=== PATIENT | male | born 1940 | race Caucasian/White ===

== ENCOUNTER 2019-02-18 08:31 | Outpatient (CLI) | payer MEDICARE, OTHER ==
[2019-02-18 09:21] LABS: BASOPHILS % (AUTO) 0.6 % (0-1); EOSINOPHILS # (AUTO) 0.1 X10'3 (0-0.9); EOSINOPHILS % (AUTO) 1.5 % (0-6); HEMATOCRIT 41.7 % (42.0-52.0); LYMPHOCYTES # (AUTO) 1.7 X10'3 (1.1-4.8); LYMPHOCYTES % (AUTO) 26.8 % (21-51); MEAN CORPUSCULAR HEMOGLOBIN 29.5 PG (27.0-31.0); MEAN CORPUSCULAR HGB CONC 33.6 g/dL (33.0-36.5); MEAN CORPUSCULAR VOLUME 87.9 FL (78-98); MEAN PLATELET VOLUME 7.8 FL (7.4-10.4); MONOCYTES # (AUTO) 0.6 X10'3 (0-0.9); NEUTROPHILS % (AUTO) 62.1 % (42-75); PLATELET COUNT 212 X10'3 (140-440); RED BLOOD COUNT 4.74 X10'6 (4.70-6.10); RED CELL DISTRIBUTION WIDTH 14.5 % (11.5-14.5); WHITE BLOOD COUNT 6.5 X10'3 (4.5-11.0)
[2019-02-18 09:28] LABS: PARTIAL THROMBOPLASTIN TIME 43 SECONDS (22-32)
[2019-02-18 09:33] LABS: ALANINE AMINOTRANSFERASE 16 U/L (12-78); ALBUMIN 3.6 G/DL (3.4-5.0); ALBUMIN/GLOBULIN RATIO 0.9 (1.1-1.5); ALKALINE PHOSPHATASE 94 IU/L (46-116); ANION GAP 4 (8-16); ASPARTATE AMINO TRANSFERASE 15 U/L (10-37); BILIRUBIN,TOTAL 0.7 MG/DL (0.1-1.0); BLOOD UREA NITROGEN 24 MG/DL (7-18); BUN/CREATININE RATIO 16.8 (5.4-32.0); CALCIUM 9.5 MG/DL (8.5-10.1); CHLORIDE 108 MMOL/L (99-107); CREATININE 1.43 MG/DL (0.60-1.10); GLUCOSE 91 MG/DL (70-104); POTASSIUM 4.2 MMOL/L (3.5-5.1); SODIUM 144 MMOL/L (135-145); TOTAL CARBON DIOXIDE 31.9 MMOL/L (24-32); TOTAL PROTEIN 7.5 G/DL (6.4-8.2); eGFR 48 ML/MIN
== END 2019-02-18 23:59 | disposition home or self-care (01) ==
LOC: LAB 08:31
PROVIDERS: ATTEND Otolaryngology
DX: D69.1 Qualitative platelet defects (principal)
CPT/HCPCS: 36415; 80053; 85025; 85576; 85610; 85730

== ENCOUNTER 2021-02-25 08:00 | Inpatient (IN) | payer MEDICARE, OTHER ==
[2021-02-19 13:00] LABS: CLARITY,URINE CLEAR (Clear); COLOR,URINE YELLOW (Yellow); GLUCOSE, URINE NEGATIVE (Neg); KETONES,URINE NEGATIVE (Neg); LEUKOCYTE ESTERASE ,URINE NEGATIVE (Neg); NITRITES, URINE NEGATIVE (Neg); OCCULT BLOOD,URINE NEGATIVE (Neg); PH,URINE 5.5 (4.8-8.0); PROTEIN,URINE 100 mg/dl (Neg); UA COLLECTION TYPE CLN CATCH MIDSTREAM; UROBILINOGEN,URINE 0.2 E.U/dL (0.2-1.0)
[2021-02-19 13:02] LABS: BASOPHILS # (AUTO) 0.1 X10'3 (0-0.2); BASOPHILS % (AUTO) 0.6 % (0-1); EOSINOPHILS # (AUTO) 0.1 X10'3 (0-0.9); EOSINOPHILS % (AUTO) 1.7 % (0-6); LYMPHOCYTES # (AUTO) 2.3 X10'3 (1.1-4.8); LYMPHOCYTES % (AUTO) 26.6 % (21-51); MEAN CORPUSCULAR HEMOGLOBIN 28.8 PG (27.0-31.0); MEAN CORPUSCULAR HGB CONC 33.2 g/dL (33.0-36.5); MEAN CORPUSCULAR VOLUME 86.7 FL (78-98); MONOCYTES # (AUTO) 0.8 X10'3 (0-0.9); MONOCYTES % (AUTO) 9.7 % (2-12); NEUTROPHILS # (AUTO) 5.2 X10'3 (1.8-7.7); NEUTROPHILS % (AUTO) 61.4 % (42-75); PRE OP HEMATOCRIT 43.6 % (42.0-52.0); PRE OP HEMOGLOBIN 14.5 g/dL (14.0-17.9); PRE OP PLATELET COUNT 219 X10'3 (140-440); RED BLOOD COUNT 5.03 X10'6 (4.70-6.10); RED CELL DISTRIBUTION WIDTH 15.2 % (11.5-14.5)
[2021-02-19 13:14] LABS: BACTERIA,URINE NONE SEEN /HPF (Neg); MUCUS STRANDS NONE SEEN /LPF (Neg); RBC,URINE NONE SEEN /HPF (0-2); SQUAMOUS EPITHELIAL CELL,UR FEW /LPF (FEW); WBC,URINE 0-4 /HPF (0-4)
[2021-02-19 13:16] LABS: PRE OP PARTIAL THROMB. TIME 39 SECONDS (22-32)
[2021-02-19 13:20] LABS: ALBUMIN 3.6 G/DL (3.4-5.0); ALBUMIN/GLOBULIN RATIO 0.9 (1.1-1.5); ALKALINE PHOSPHATASE 97 IU/L (46-116); BLOOD UREA NITROGEN 23 MG/DL (7-18); BUN/CREATININE RATIO 16.1 (5.4-32.0); CALCIUM 9.2 MG/DL (8.5-10.1); CHLORIDE 105 MMOL/L (99-107); CREATININE 1.43 MG/DL (0.60-1.10); PRE OP ALT 23 U/L (30-65); PRE OP ANION GAP 9 (8-16); PRE OP AST 17 U/L (10-37); PRE OP BILIRUB, TOTAL 0.7 MG/DL (0.0-1.0); PRE OP GLUCOSE 82 MG/DL (70-104); PRE OP POTASSIUM 4.1 MMOL/L (3.4-5.1); PRE OP SODIUM 143 MMOL/L (135-145); TOTAL CARBON DIOXIDE 29.4 MMOL/L (24-32); TOTAL PROTEIN 7.4 G/DL (6.4-8.2); eGFR 47 ML/MIN
[~2021-02-25] VITALS: Ht 182.9 cm; Wt 99.3 kg
[~2021-02-25 08:00] MED LIST: DILT120C10 PO; DOCUMENT DATE & TIME OF BETA-BLOCKER PO ONE; FLO0.4C PO; LOSA50TA3 PO; METO-539 PO; PRAV20TA4 PO; WARF-55 PO; ceFAZolin 2gm in dextrose, iso 50 ML IV ONE; famotidine 20mg tablet PO ONE; ringers solution, lacted 1,000 ML IV SCH
[2021-02-26] VITALS (12 sets, daily range): BP systolic 120–165; BP diastolic 74–96
[2021-02-26] MEDS ORDERED: ringers solution, lacted 1,000 ML IV SCH ×2 (05:30→16:45)
[2021-02-26] MEDS ORDERED: DOCUMENT DATE & TIME OF BETA-BLOCKER PO ONE (05:30)
[2021-02-26] MEDS ORDERED: ceFAZolin 2gm in dextrose, iso 50 ML IV ONE (05:30)
[2021-02-26] MEDS ORDERED: famotidine 20mg tablet PO ONE (05:30)
[2021-02-26] MEDS ORDERED: ondansetron/PF 4mg/2ml inj ONE (13:28)
[2021-02-26] MEDS ORDERED: LIDOcaine 2% (20mg/ml) 5ml vial ONE (13:28)
[2021-02-26] MEDS ORDERED: dexamethasone sod phosphate 4mg/ml inj. ONE (13:28)
[2021-02-26] MEDS ORDERED: propofol inj 20 ML IV ONE (13:28)
[2021-02-26] MEDS ORDERED: midazolam 1 mg/ML 2ml injection ONE (13:28)
[2021-02-26] MEDS ORDERED: fentaNYL /PF 50mcg/ml 5ml ampule ONE (13:28)
[2021-02-26] MEDS ORDERED: rocuronium 10mg/ml inj IV ONE ×3 (13:29→16:50)
[2021-02-26] MEDS ORDERED: sevoflurane 250ml liquid IH ONE (13:37)
[2021-02-26] MEDS ORDERED: PHENYLephrine 10mg/ml 5ml injection IV ONE (13:37)
[2021-02-26] MEDS ORDERED: albumin (Human) 5% 250ml 250 ML IV ONE ×2 (14:33→17:55)
[2021-02-26] MEDS ORDERED: ePHEDrine 50MG/ML INJ. ONE (15:59)
[2021-02-26] MEDS ORDERED: INDOCYANINE GREEN 25 MG/10 ML VIAL IV ONE (16:12)
[2021-02-26] MEDS ORDERED: morphine 2 MG/ML inj. syringe IV PRN (16:45)
[2021-02-26] MEDS ORDERED: ondansetron/PF 4mg/2ml inj IV PRN ×2 (16:45→20:10)
[2021-02-26] MEDS ORDERED: labetalol 20mg/4ml (5mg/ml) syringe IV PRN (16:45)
[2021-02-26] MEDS ORDERED: fentaNYL/PF 50MCG/1 ML 2ML syringe IV PRN ×2 (16:45)
[2021-02-26] MEDS ORDERED: albuterol 2.5 MG/3 ML nebule NEB ONE (16:45)
[2021-02-26] MEDS ORDERED: hydrALAZINE 20mg/ml inj. IV PRN (16:45)
[2021-02-26] MEDS ORDERED: glycopyrrolate 0.2mg/ml inj ONE (16:51)
[2021-02-26] MEDS ORDERED: neostigmine methylsulfate 1 MG/ML 10ml vial ONE (16:51)
[2021-02-26] MEDS ORDERED: BUPIVACAINE liposomal/PF 13.3 MG/ML vial IM ONE (18:05)
[2021-02-26] MEDS ORDERED: BUPIVAcaine/PF 2.5mg/ml (0.25%) 10ml vial ONE (18:05)
[2021-02-26] MEDS ORDERED: sugammadex 200mg/2ml injection IV ONE (18:08)
--- NOTE | 2021-02-26 19:23 | NUR ---
Received from OR via BED IN STABLE CONDITION, accompanied by Anesthesiologist and MACHINE CASTINGS PLASTERER report given by MACHINE CASTINGS PLASTERER AND Anesthesiolgist. Addendum: 02/26/21 at 1939 by Eleanor Olivas RN Amended: Links added.
[2021-02-26 19:47] LABS: ABG HCO3 21.2 mmol/L (22.0-26.0); ABG OXYGEN SATURATION 91.1 % (94-97); ABG PCO2 (T) 42.1 mmHg (35.0-48.0); ABG PO2 (T) 63.4 mmHg (75.0-100.0); FCOHb 0.7 % (0.0-3.9); FLOW 2 L/min; FMetHb 0.3 % (0.0-1.5); FO2Hb 90.2 % (94-97); PATIENT TEMPERATURE 36.2; TOTAL HEMOGLOBIN 13.6 G/dl (14.0-18.0)
[2021-02-26] MEDS ORDERED: acetaminophen 1,000mg/100ml IV 100 ML IV ONE (20:00)
[2021-02-26] MEDS: morphine 4 MG/ML inj SYRINge IV PRN ×3 (20:03→20:50)
[2021-02-26] MEDS ORDERED: albuterol 2.5 MG/3 ML nebule NEB PRN (20:10)
[2021-02-26] MEDS ORDERED: CADD PCA waste documentation MC PRN (20:10)
[2021-02-26] MEDS ORDERED: naloxone 0.4 mg/ml inj IV PRN (20:10)
[2021-02-26] MEDS ORDERED: HYDROcodone/acetaminophen 10/325mg tab PO PRN (20:10)
[2021-02-26] MEDS ORDERED: potassium Cl 20mEq in D5-NS 1,000 ML IV SCH (20:10)
[2021-02-26] MEDS ORDERED: morphine 4 MG/ML inj SYRINge IV PRN ×2 (20:10)
[2021-02-26] MEDS ORDERED: metoclopramide 5 mg/ml inj IV PRN (20:10)
--- NOTE | 2021-02-26 20:23 | NUR ---
PATIENT DISCHARGED FROM PACU IN STABLE CONDITION AFTER REPORT GIVEN TO RN TAKING OVER PATIENTS CARE. PATIENT TRANFERRED IN BED WITH RN X2 ON MONITOR. RN UPDATED. Addendum: 02/26/21 at 2039 by Eleanor Olivas RN Amended: Links added.
[2021-02-26 21:46] LABS: BASOPHILS % (AUTO) 0.2 % (0-1); EOSINOPHILS % (AUTO) 0 % (0-6); HEMATOCRIT 39.9 % (42.0-52.0); HEMOGLOBIN 13.2 g/dl (14.0-17.9); LYMPHOCYTES # (AUTO) 0.4 X10'3 (1.1-4.8); LYMPHOCYTES % (AUTO) 3.7 % (21-51); MEAN CORPUSCULAR HGB CONC 33.2 g/dL (33.0-36.5); MEAN CORPUSCULAR VOLUME 87.3 FL (78-98); MEAN PLATELET VOLUME 7.9 FL (7.4-10.4); MONOCYTES # (AUTO) 0.7 X10'3 (0-0.9); MONOCYTES % (AUTO) 6.2 % (2-12); NEUTROPHILS # (AUTO) 9.6 X10'3 (1.8-7.7); NEUTROPHILS % (AUTO) 89.9 % (42-75); PLATELET COUNT 164 X10'3 (140-440); RED BLOOD COUNT 4.57 X10'6 (4.70-6.10); RED CELL DISTRIBUTION WIDTH 14.6 % (11.5-14.5); WHITE BLOOD COUNT 10.7 X10'3 (4.5-11.0)
[2021-02-26] MEDS: HYDROmorphone 1 mg/ml syringe IV PRN (21:51)
[2021-02-26 23:24] LABS: ANION GAP 12 (8-16); BLOOD UREA NITROGEN 19 MG/DL (7-18); BUN/CREATININE RATIO 14.6 (5.4-32.0); CALCIUM 8.4 MG/DL (8.5-10.1); CHLORIDE 107 MMOL/L (99-107); GLUCOSE 165 MG/DL (70-104); POTASSIUM 3.9 MMOL/L (3.5-5.1); SODIUM 143 MMOL/L (135-145); TOTAL CARBON DIOXIDE 24.5 MMOL/L (24-32); eGFR 53 ML/MIN
[2021-02-26 23:25] LABS: ALBUMIN 3.4 G/DL (3.4-5.0); MAGNESIUM 1.7 MG/DL (1.5-2.4)
[2021-02-27] VITALS (24 sets, daily range): BP systolic 116–155; BP diastolic 66–92
[2021-02-27] MEDS: ceFAZolin 1GM/D5W- ADD-VANTAGE 50 ML IV SCH ×2 (00:45→07:35)
[2021-02-27] MEDS: morphine 4 MG/ML inj SYRINge IV PRN ×2 (02:04→10:03)
[2021-02-27 02:28] LABS: BASOPHILS % (AUTO) 0.1 % (0-1); EOSINOPHILS % (AUTO) 0 % (0-6); HEMATOCRIT 39.5 % (42.0-52.0); HEMOGLOBIN 13.2 g/dl (14.0-17.9); LYMPHOCYTES # (AUTO) 0.6 X10'3 (1.1-4.8); LYMPHOCYTES % (AUTO) 5.8 % (21-51); MEAN CORPUSCULAR HGB CONC 33.4 g/dL (33.0-36.5); MEAN CORPUSCULAR VOLUME 86.9 FL (78-98); MEAN PLATELET VOLUME 7.9 FL (7.4-10.4); MONOCYTES # (AUTO) 0.6 X10'3 (0-0.9); MONOCYTES % (AUTO) 6.3 % (2-12); NEUTROPHILS # (AUTO) 8.7 X10'3 (1.8-7.7); NEUTROPHILS % (AUTO) 87.8 % (42-75); PLATELET COUNT 170 X10'3 (140-440); RED BLOOD COUNT 4.55 X10'6 (4.70-6.10); RED CELL DISTRIBUTION WIDTH 14.4 % (11.5-14.5); WHITE BLOOD COUNT 9.9 X10'3 (4.5-11.0)
[2021-02-27 02:56] LABS: ALANINE AMINOTRANSFERASE 28 U/L (12-78); ALBUMIN 3.3 G/DL (3.4-5.0); ALKALINE PHOSPHATASE 76 IU/L (46-116); ANION GAP 7 (8-16); ASPARTATE AMINO TRANSFERASE 34 U/L (10-37); BILIRUBIN,TOTAL 0.7 MG/DL (0.1-1.0); BLOOD UREA NITROGEN 20 MG/DL (7-18); BUN/CREATININE RATIO 15.7 (5.4-32.0); CHLORIDE 105 MMOL/L (99-107); CREATININE 1.27 MG/DL (0.60-1.10); GLUCOSE 189 MG/DL (70-104); MAGNESIUM 1.7 MG/DL (1.5-2.4); PHOSPHORUS 3.9 MG/DL (2.3-4.5); POTASSIUM 4.3 MMOL/L (3.5-5.1); SODIUM 136 MMOL/L (135-145); TOTAL CARBON DIOXIDE 23.9 MMOL/L (24-32); TOTAL PROTEIN 6.5 G/DL (6.4-8.2); eGFR 54 ML/MIN
[2021-02-27] MEDS: HYDROmorphone 1 mg/ml syringe IV PRN (05:52)
[2021-02-27] MEDS: HYDROcodone/acetaminophen 10/325mg tab PO PRN ×2 (06:45→11:36)
[2021-02-27] MEDS: gabapentin 300mg capsule PO SCH ×2 (07:44→20:58)
[2021-02-27] MEDS: diltiazem SR 60mg capsule (twice daily) PO SCH ×2 (09:29→20:58)
[2021-02-27] MEDS: metoprolol succinate 25mg (24-HOUR) SR. Tablet PO SCH (09:29)
[2021-02-27] MEDS ORDERED: morphine 2 MG/ML inj. syringe IV PRN (11:35)
--- NOTE | 2021-02-27 18:30 | NUR ---
Patient in room ICU 2046. I have received report from RAJI Marcum and had the opportunity to ask questions and assume patient care.
[2021-02-27] MEDS: tamsulosin 0.4mg capsule PO SCH (20:58)
[2021-02-27] MEDS: warfarin 5mg tablet PO SCH (20:59)
--- NOTE | 2021-02-27 21:53 | NUR ---
Problems reprioritized. Patient report given, questions answered & plan of care reviewed with RAJI Ocampo.
[2021-02-28] VITALS (21 sets, daily range): BP systolic 90–134; BP diastolic 53–81
--- NOTE | 2021-02-28 06:18 | NUR ---
Problems reprioritized. Patient report given, questions answered & plan of care reviewed with Yonas RN .
--- NOTE | 2021-02-28 06:30 | NUR ---
Patient in room ICU 2046. I have received report from RAJI Ocampo and had the opportunity to ask questions and assume patient care.
[2021-02-28] MEDS: gabapentin 300mg capsule PO SCH ×2 (08:01→20:55)
[2021-02-28] MEDS: diltiazem SR 60mg capsule (twice daily) PO SCH ×2 (08:01→20:55)
[2021-02-28] MEDS: metoprolol succinate 25mg (24-HOUR) SR. Tablet PO SCH (08:01)
[2021-02-28 08:10] LABS: BASOPHILS % (AUTO) 0.1 % (0-1); EOSINOPHILS % (AUTO) 0.1 % (0-6); HEMATOCRIT 37.4 % (42.0-52.0); HEMOGLOBIN 12.5 g/dl (14.0-17.9); LYMPHOCYTES # (AUTO) 1.7 X10'3 (1.1-4.8); LYMPHOCYTES % (AUTO) 14.6 % (21-51); MEAN CORPUSCULAR HGB CONC 33.4 g/dL (33.0-36.5); MEAN CORPUSCULAR VOLUME 86.9 FL (78-98); MEAN PLATELET VOLUME 8.5 FL (7.4-10.4); MONOCYTES # (AUTO) 1.1 X10'3 (0-0.9); MONOCYTES % (AUTO) 9.2 % (2-12); NEUTROPHILS # (AUTO) 8.9 X10'3 (1.8-7.7); PLATELET COUNT 189 X10'3 (140-440); RED CELL DISTRIBUTION WIDTH 14.7 % (11.5-14.5); WHITE BLOOD COUNT 11.8 X10'3 (4.5-11.0)
[2021-02-28 08:18] LABS: PARTIAL THROMBOPLASTIN TIME 36 SECONDS (22-32)
[2021-02-28 08:30] LABS: ALANINE AMINOTRANSFERASE 23 U/L (12-78); ALBUMIN 2.9 G/DL (3.4-5.0); ALBUMIN/GLOBULIN RATIO 0.9 (1.1-1.5); ALKALINE PHOSPHATASE 71 IU/L (46-116); ANION GAP 5 (8-16); ASPARTATE AMINO TRANSFERASE 26 U/L (10-37); BILIRUBIN,TOTAL 0.7 MG/DL (0.1-1.0); BLOOD UREA NITROGEN 22 MG/DL (7-18); BUN/CREATININE RATIO 19.1 (5.4-32.0); CALCIUM 8.8 MG/DL (8.5-10.1); CHLORIDE 104 MMOL/L (99-107); CREATININE 1.15 MG/DL (0.60-1.10); GLUCOSE 105 MG/DL (70-104); MAGNESIUM 2.1 MG/DL (1.5-2.4); POTASSIUM 4.5 MMOL/L (3.5-5.1); SODIUM 138 MMOL/L (135-145); TOTAL CARBON DIOXIDE 28.6 MMOL/L (24-32); TOTAL PROTEIN 6.3 G/DL (6.4-8.2); eGFR 61 ML/MIN
[2021-02-28] MEDS: HYDROcodone/acetaminophen 10/325mg tab PO PRN (14:29)
--- NOTE | 2021-02-28 18:13 | NUR ---
Problems reprioritized. Patient report given, questions answered & plan of care reviewed with RAJI Arauz.
--- NOTE | 2021-02-28 19:06 | NUR ---
report called to Aishwarya ALEGRIA, plan of care reviewed,
--- NOTE | 2021-02-28 19:08 | NUR ---
Patient in room ICU 2046. I have received report from HERSONRN and had the opportunity to ask questions and assume patient care.
--- NOTE | 2021-02-28 19:30 | NUR ---
Patient arrived from ICU with Charge Nurse Carlos and was transferred to hospital bed w/o problem. He is A&Ox4, RAMAN and is appropriate. I will continue to monitor.
[2021-02-28] MEDS: warfarin 5mg tablet PO SCH (20:55)
[2021-02-28] MEDS: tamsulosin 0.4mg capsule PO SCH (20:58)
--- NOTE | 2021-03-01 06:19 | NUR ---
Problems reprioritized. Patient report given, questions answered & plan of care reviewed with RAJI Zarate.
[2021-03-01 06:30] LABS: BASOPHILS % (AUTO) 0.2 % (0-1); EOSINOPHILS # (AUTO) 0.1 X10'3 (0-0.9); EOSINOPHILS % (AUTO) 0.7 % (0-6); HEMOGLOBIN 12.6 g/dl (14.0-17.9); LYMPHOCYTES # (AUTO) 2.2 X10'3 (1.1-4.8); LYMPHOCYTES % (AUTO) 19.8 % (21-51); MEAN CORPUSCULAR HEMOGLOBIN 29.4 PG (27.0-31.0); MEAN CORPUSCULAR VOLUME 86.4 FL (78-98); MEAN PLATELET VOLUME 8.7 FL (7.4-10.4); MONOCYTES # (AUTO) 1.1 X10'3 (0-0.9); MONOCYTES % (AUTO) 10.1 % (2-12); NEUTROPHILS # (AUTO) 7.6 X10'3 (1.8-7.7); NEUTROPHILS % (AUTO) 69.2 % (42-75); PLATELET COUNT 192 X10'3 (140-440); RED BLOOD COUNT 4.28 X10'6 (4.70-6.10); RED CELL DISTRIBUTION WIDTH 14.6 % (11.5-14.5)
[2021-03-01 06:48] LABS: ALANINE AMINOTRANSFERASE 14 U/L (12-78); ALBUMIN 2.7 G/DL (3.4-5.0); ALBUMIN/GLOBULIN RATIO 0.8 (1.1-1.5); ALKALINE PHOSPHATASE 74 IU/L (46-116); ANION GAP 7 (8-16); ASPARTATE AMINO TRANSFERASE 18 U/L (10-37); BILIRUBIN,TOTAL 0.8 MG/DL (0.1-1.0); BLOOD UREA NITROGEN 30 MG/DL (7-18); BUN/CREATININE RATIO 23.1 (5.4-32.0); CALCIUM 8.8 MG/DL (8.5-10.1); CHLORIDE 102 MMOL/L (99-107); GLUCOSE 97 MG/DL (70-104); MAGNESIUM 2.1 MG/DL (1.5-2.4); PHOSPHORUS 3.2 MG/DL (2.3-4.5); POTASSIUM 4.1 MMOL/L (3.5-5.1); SODIUM 138 MMOL/L (135-145); TOTAL PROTEIN 6.1 G/DL (6.4-8.2); eGFR 53 ML/MIN
[2021-03-01 07:00] VITALS: BP 126/70
--- NOTE | 2021-03-01 07:15 | NUR ---
Patient in room PCU 3013. I have received report from Yazmin ALEGRIA and had the opportunity to ask questions and assume patient care.
[2021-03-01] MEDS: metoprolol succinate 25mg (24-HOUR) SR. Tablet PO SCH (08:00)
[2021-03-01] MEDS: diltiazem SR 60mg capsule (twice daily) PO SCH ×2 (08:00→20:04)
[2021-03-01] MEDS: HYDROcodone/acetaminophen 10/325mg tab PO PRN ×3 (08:11→20:06)
[2021-03-01 11:00] VITALS: BP 112/70
[2021-03-01 15:00] VITALS: BP 105/57
[2021-03-01 18:00] VITALS: BP 106/58
--- NOTE | 2021-03-01 18:40 | NUR ---
Problems reprioritized. Patient report given, questions answered & plan of care reviewed with Lina ALEGRIA.
--- NOTE | 2021-03-01 19:06 | NUR ---
Patient in room PCU 3013. I have received report from Tessa ALEGRIA and had the opportunity to ask questions and assume patient care.
--- NOTE | 2021-03-01 19:11 | NUR ---
Chest tube was not marked from dayshift. Marked at 1500, serosanguineous drain apparent, hooked to water seal.
[2021-03-01] MEDS: warfarin 5mg tablet PO SCH (20:03)
[2021-03-01] MEDS: tamsulosin 0.4mg capsule PO SCH (20:04)
[2021-03-01 22:00] VITALS: BP 104/77
--- NOTE | 2021-03-01 23:56 | NUR ---
Went in to do chest tube assessment and found that atrium had been knocked over and RN was not notified. Serosanguineous drainage was in the water seal chamber and had been altered in the collection chambers. After adding the actual drainage in the 3 chambers and accounting for approximately 20 in the water seal chamber, drainage total so far on this shift would be 10cc. Atrium was replaced with the assistance of kiln charger Meghan.
[2021-03-02 02:00] VITALS: BP 120/69
[2021-03-02 05:59] LABS: BASOPHILS % (AUTO) 0.3 % (0-1); EOSINOPHILS # (AUTO) 0.2 X10'3 (0-0.9); HEMATOCRIT 40.4 % (42.0-52.0); HEMOGLOBIN 13.5 g/dl (14.0-17.9); LYMPHOCYTES % (AUTO) 22.1 % (21-51); MEAN CORPUSCULAR HEMOGLOBIN 29.2 PG (27.0-31.0); MEAN CORPUSCULAR HGB CONC 33.4 g/dL (33.0-36.5); MEAN CORPUSCULAR VOLUME 87.3 FL (78-98); MONOCYTES % (AUTO) 11.3 % (2-12); NEUTROPHILS # (AUTO) 5.9 X10'3 (1.8-7.7); NEUTROPHILS % (AUTO) 64.3 % (42-75); PLATELET COUNT 226 X10'3 (140-440); RED BLOOD COUNT 4.62 X10'6 (4.70-6.10); RED CELL DISTRIBUTION WIDTH 14.6 % (11.5-14.5); WHITE BLOOD COUNT 9.2 X10'3 (4.5-11.0)
[2021-03-02 06:14] LABS: ALANINE AMINOTRANSFERASE 19 U/L (12-78); ALBUMIN 2.8 G/DL (3.4-5.0); ALBUMIN/GLOBULIN RATIO 0.7 (1.1-1.5); ALKALINE PHOSPHATASE 74 IU/L (46-116); ANION GAP 4 (8-16); ASPARTATE AMINO TRANSFERASE 20 U/L (10-37); BILIRUBIN,TOTAL 0.9 MG/DL (0.1-1.0); BLOOD UREA NITROGEN 32 MG/DL (7-18); BUN/CREATININE RATIO 21.9 (5.4-32.0); CALCIUM 9.3 MG/DL (8.5-10.1); CHLORIDE 102 MMOL/L (99-107); CREATININE 1.46 MG/DL (0.60-1.10); GLUCOSE 108 MG/DL (70-104); MAGNESIUM 2.1 MG/DL (1.5-2.4); PHOSPHORUS 4.1 MG/DL (2.3-4.5); POTASSIUM 4.2 MMOL/L (3.5-5.1); SODIUM 137 MMOL/L (135-145); TOTAL PROTEIN 6.6 G/DL (6.4-8.2); eGFR 46 ML/MIN
--- NOTE | 2021-03-02 06:31 | NUR ---
Problems reprioritized. Patient report given, questions answered & plan of care reviewed with Becky ALEGRIA.
--- NOTE | 2021-03-02 06:44 | NUR ---
Patient in room PCU 3013. I have received report from RAJI Mills and had the opportunity to ask questions and assume patient care.
[2021-03-02 07:00] VITALS: BP 139/80
--- NOTE | 2021-03-02 07:01 | NUR ---
Patient in room PCU 3013. I have received report from RAJI Pena and had the opportunity to ask questions and assume patient care.
[2021-03-02] MEDS: diltiazem SR 60mg capsule (twice daily) PO SCH ×2 (07:57→20:07)
[2021-03-02] MEDS: metoprolol succinate 25mg (24-HOUR) SR. Tablet PO SCH (07:58)
--- NOTE | 2021-03-02 10:06 | NUR ---
Student documentation: I have reviewed and agree with all interventions, assessments performed and documented by Layla, nursing technician.
--- NOTE | 2021-03-02 10:07 | NUR ---
Student Medication Administration: For this medication-pass time frame, all medication were reviewed, dispensed, administered and documented per hospital policy by Layla nursing consultant.
[2021-03-02 11:00] VITALS: BP 117/67
--- NOTE | 2021-03-02 11:55 | NUR ---
Problems reprioritized. Patient report given, questions answered & plan of care reviewed with RAJI Pena.
--- NOTE | 2021-03-02 14:00 | NUR ---
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 Pt PO mostly 100% avg heart healthy diet post-op meeting needs. Noted +10kg in one day likely error w/ true wt prior 89.1kg making BMI 26. LBM 02/26; would benefit from routine bowel care post-op. Will continue to monitor. Rec: 1. continue heart healthy diet per MD 2. routine bowel care; 4 days constipation post-op 3. weekly wts Addendum: 03/02/21 at [address] Amended: Links added.
[2021-03-02] MEDS: traMADol 50MG tablet PO PRN (14:20)
[2021-03-02 15:00] VITALS: BP 160/84
[2021-03-02 18:00] VITALS: BP 113/72
--- NOTE | 2021-03-02 18:54 | NUR ---
Problems reprioritized. Patient report given, questions answered & plan of care reviewed with RAJI Rendon. Pt sitting up in bed eating dinner. No signs of distress at change of shift. All pt needs met at this time.
--- NOTE | 2021-03-02 18:55 | NUR ---
Patient in room PCU 3013. I have received report from FLORENCIA ALEGRIA and had the opportunity to ask questions and assume patient care.
[2021-03-02] MEDS: tamsulosin 0.4mg capsule PO SCH (20:07)
[2021-03-02] MEDS: warfarin 5mg tablet PO SCH (20:08)
[2021-03-02 22:00] VITALS: BP 164/83
[2021-03-03] VITALS (7 sets, daily range): BP systolic 113–139; BP diastolic 62–85
--- NOTE | 2021-03-03 03:49 | NUR ---
ATRIUM WAS KNOCKED OVER WHEN PATIENT MOVED TO SIT ON EDGE OF THE BED. ATRIUM WAS CHANGED.
--- NOTE | 2021-03-03 06:30 | NUR ---
Problems reprioritized. Patient report given, questions answered & plan of care reviewed with AJAY ALEGRIA.
[2021-03-03 06:41] LABS: BASOPHILS % (AUTO) 0.3 % (0-1); EOSINOPHILS # (AUTO) 0.1 X10'3 (0-0.9); EOSINOPHILS % (AUTO) 1.3 % (0-6); HEMATOCRIT 38.9 % (42.0-52.0); HEMOGLOBIN 13.1 g/dl (14.0-17.9); LYMPHOCYTES # (AUTO) 1.5 X10'3 (1.1-4.8); LYMPHOCYTES % (AUTO) 17.5 % (21-51); MEAN CORPUSCULAR HGB CONC 33.8 g/dL (33.0-36.5); MEAN CORPUSCULAR VOLUME 85.9 FL (78-98); MEAN PLATELET VOLUME 8.2 FL (7.4-10.4); MONOCYTES % (AUTO) 11.6 % (2-12); NEUTROPHILS # (AUTO) 6.1 X10'3 (1.8-7.7); NEUTROPHILS % (AUTO) 69.3 % (42-75); PLATELET COUNT 248 X10'3 (140-440); RED BLOOD COUNT 4.52 X10'6 (4.70-6.10); RED CELL DISTRIBUTION WIDTH 14.7 % (11.5-14.5); WHITE BLOOD COUNT 8.8 X10'3 (4.5-11.0)
[2021-03-03 07:02] LABS: ALANINE AMINOTRANSFERASE 40 U/L (12-78); ALBUMIN 2.6 G/DL (3.4-5.0); ALBUMIN/GLOBULIN RATIO 0.7 (1.1-1.5); ALKALINE PHOSPHATASE 80 IU/L (46-116); ANION GAP 5 (8-16); ASPARTATE AMINO TRANSFERASE 29 U/L (10-37); BILIRUBIN,TOTAL 1.1 MG/DL (0.1-1.0); BLOOD UREA NITROGEN 26 MG/DL (7-18); BUN/CREATININE RATIO 23.4 (5.4-32.0); CALCIUM 9.2 MG/DL (8.5-10.1); CHLORIDE 103 MMOL/L (99-107); CREATININE 1.11 MG/DL (0.60-1.10); GLUCOSE 120 MG/DL (70-104); MAGNESIUM 2.1 MG/DL (1.5-2.4); PHOSPHORUS 3.1 MG/DL (2.3-4.5); POTASSIUM 4.2 MMOL/L (3.5-5.1); SODIUM 140 MMOL/L (135-145); TOTAL CARBON DIOXIDE 31.6 MMOL/L (24-32); TOTAL PROTEIN 6.5 G/DL (6.4-8.2); eGFR 63 ML/MIN
[2021-03-03] MEDS: metoprolol succinate 25mg (24-HOUR) SR. Tablet PO SCH (08:03)
[2021-03-03] MEDS: diltiazem SR 60mg capsule (twice daily) PO SCH ×2 (08:05→20:03)
[2021-03-03] MEDS: traMADol 50MG tablet PO PRN ×2 (08:06→12:02)
--- NOTE | 2021-03-03 10:05 | NUR ---
Called Dr Thomas - left generic message of Beckett & Robbil to call back re: les, possibly change tramadol to norco. Pending call back
[2021-03-03] MEDS ORDERED: magnesium citrate 296ml oral solution PO ONE (15:25)
[2021-03-03] MEDS ORDERED: magnesium hydroxide 30ml (MOM) UD suspension PO PRN (15:25)
[2021-03-03] MEDS ORDERED: HYDROcodone/acetaminophen 5mg/325mg tablet PO PRN (15:25)
--- NOTE | 2021-03-03 15:30 | NUR ---
Per Dr Thomas over phone. CT to waterseal.
--- NOTE | 2021-03-03 18:10 | NUR ---
Patient in room PCU 3013. I have received report from RAJI Mills and had the opportunity to ask questions and assume patient care.
--- NOTE | 2021-03-03 18:38 | NUR ---
Problems reprioritized. Patient report given, questions answered & plan of care reviewed with RAJI Madden.
[2021-03-03] MEDS: tamsulosin 0.4mg capsule PO SCH (20:03)
[2021-03-03] MEDS: warfarin 5mg tablet PO SCH (20:04)
[2021-03-04 02:00] VITALS: BP 133/65
[2021-03-04 06:00] VITALS: BP 126/78
--- NOTE | 2021-03-04 06:41 | NUR ---
Problems reprioritized. Patient report given, questions answered & plan of care reviewed with RAJI George.
--- NOTE | 2021-03-04 06:59 | NUR ---
Patient in room PCU 3013. I have received report from Maryanne jordan and had the opportunity to ask questions and assume patient care.
[2021-03-04] MEDS: diltiazem SR 60mg capsule (twice daily) PO SCH ×2 (07:31→21:02)
[2021-03-04] MEDS: metoprolol succinate 25mg (24-HOUR) SR. Tablet PO SCH (07:31)
[2021-03-04 11:00] VITALS: BP 111/58
[2021-03-04 15:00] VITALS: BP 129/68
--- NOTE | 2021-03-04 15:24 | NUR ---
PT IJ WAS DC PER DR BIGGS. CANULA INTACT AND NO PROBLEMS
[2021-03-04 18:00] VITALS: BP 119/65
--- NOTE | 2021-03-04 18:27 | NUR ---
Problems reprioritized. Patient report given, questions answered & plan of care reviewed with GABRIELA OCHOA RN.
--- NOTE | 2021-03-04 18:35 | NUR ---
Patient in room PCU 3013. I have received report from BRIANA ALEGRIA and had the opportunity to ask questions and assume patient care.
[2021-03-04] MEDS: tamsulosin 0.4mg capsule PO SCH (21:02)
[2021-03-04] MEDS: warfarin 5mg tablet PO SCH (21:03)
[2021-03-04 22:00] VITALS: BP 92/74
[2021-03-05 02:00] VITALS: BP 107/52
--- NOTE | 2021-03-05 06:09 | NUR ---
Problems reprioritized. Patient report given, questions answered & plan of care reviewed with KARMEN ALEGRIA.
[2021-03-05 07:00] VITALS: BP 135/68
[2021-03-05] MEDS: diltiazem SR 60mg capsule (twice daily) PO SCH (08:28)
[2021-03-05] MEDS: metoprolol succinate 25mg (24-HOUR) SR. Tablet PO SCH (08:28)
[2021-03-05 11:00] VITALS: BP 125/80
== END 2021-03-05 15:00 | disposition home or self-care (01) | DRG 165 ==
LOC: UNDOADMIN 02-26 10:06 → PAS IN 02-26 10:06 → ICU 2S 02-26 20:25 → PAS IN 02-26 20:25 → PCU 3S 02-28 19:31
PROVIDERS: ADMIT Surgery; ATTEND Surgery
PROC: 07B74ZX Excision of Thorax Lymphatic, Percutaneous Endoscopic Approach, Diagnostic (ICD-10-PCS; 2021-02-26)
PROC: 03HY32Z Insertion of Monitoring Device into Upper Artery, Percutaneous Approach (ICD-10-PCS; 2021-02-26)
PROC: 8E0W4CZ Robotic Assisted Procedure of Trunk Region, Percutaneous Endoscopic Approach (ICD-10-PCS; 2021-02-26)
PROC: 02HV33Z Insertion of Infusion Device into Superior Vena Cava, Percutaneous Approach (ICD-10-PCS; 2021-02-26)
PROC: B548ZZA Ultrasonography of Superior Vena Cava, Guidance (ICD-10-PCS; 2021-02-26)
PROC: 0BBJ4ZZ Excision of Left Lower Lung Lobe, Percutaneous Endoscopic Approach (ICD-10-PCS; principal; 2021-02-26 13:37)
DX: D3A.090 Benign carcinoid tumor of the bronchus and lung (principal); R41.0 Disorientation, unspecified; Z20.822 Contact with and (suspected) exposure to COVID-19
CPT/HCPCS: 36415; 36600; 71045; 71046; 71250; 80048; 80053; 81001; 82803; 82948; 83735; 84100; 85018; 85025; 85610; 85730; 86885; 86900; 86901; 87081; 87635; 88305; 88309; 94760; 97110; 97112; 97116; 97161; 97530; A4618; A6449; A7000; A7048; C1758; C9250; C9290; C9399; G0378; J0131; J0690; J1100; J1170; J2001; J2250; J2270; J2370; J2405; J2704; J2710; J3010; J3480; J3490; J7030; J7040; J7120; P9045